=== PATIENT | female | born 1995 | race Caucasian/White ===

== ENCOUNTER 2017-08-05 19:32 | Emergency (ER) | payer MEDICAID ==
[~2017-08-05] VITALS: Ht 149.9 cm; Wt 63.0 kg
[2017-08-05 20:10] VITALS: BP 147/94
[2017-08-06] MEDS ORDERED: cefTRIAXone SOD 1,000 MG VL IM ONE
== END 2017-08-06 00:45 | disposition home or self-care (01) ==
LOC: ER 19:40
DX: S30.861A Insect bite (nonvenomous) of abdominal wall, initial encounter (principal); S30.860A Insect bite (nonvenomous) of lower back and pelvis, initial encounter; L03.311 Cellulitis of abdominal wall; L03.317 Cellulitis of buttock; W57.XXXA Bitten or stung by nonvenomous insect and other nonvenomous arthropods, initial encounter; Y93.89 Activity, other specified; Y92.89 Other specified places as the place of occurrence of the external cause; Y99.8 Other external cause status
CPT/HCPCS: 96372; 99283; J0696